=== PATIENT | male | born 1995 | race African-American/Black ===

== ENCOUNTER 2024-06-26 01:42 | Emergency (ER) | payer SELFPAY ==
[~2024-06-26] VITALS: Ht 188 cm; Wt 110.0 kg
[2024-06-26 01:58] VITALS: TEMP 36.9; O2SAT 98
[2024-06-26] MEDS ORDERED: CEPH500T MT (05:15)
[2024-06-26] MEDS ORDERED: SULF1TAB48 MT (05:15)
[2024-06-26] MEDS: TETANUS, DIPHTHERIA, PERTUSSIS VAC/PF 0.5ML (>10YR OLD) IM ONE (05:33)
[2024-06-26 05:34] VITALS: TEMP 98.4
[2024-06-26] MEDS: ACETAMINOPHEN 500MG TABLET PO ONE (05:34)
[2024-06-26 05:35] VITALS: BP 115/83; PULSE 100; RESP 16; O2SAT 100
== END 2024-06-26 05:36 | disposition home or self-care (01) ==
LOC: ER 01:42
DX: L02.211 Cutaneous abscess of abdominal wall (principal); Z98.890 Other specified postprocedural states
CPT/HCPCS: 90715; 10060; 90471; 99283; Z7610 ×2